=== PATIENT | female | born 1935 | race Caucasian/White ===

== ENCOUNTER 2021-06-04 17:58 | Inpatient (IN) ==
[2021-06-04] MEDS ORDERED: Naloxone 0.4 MG/ML INJ IVP PRN (23:53)
[2021-06-05] MEDS ORDERED: Melatonin 3 MG TABLET PO PRN
[2021-06-05] MEDS ORDERED: Naloxone 0.4 MG/ML INJ IVP ONE (00:42)
[2021-06-05 02:28] LABS: Basophils % 0.4 %; Hematocrit 40.5 % (35.3-44.9); Hemoglobin 12.5 g/dL (11.5-15.4); Immature Granulocytes % 0.4 % (0-4); Lymphocytes # 0.6 K/mcL (0.6-4.6); Lymphocytes % 11.9 %; Mean Corpuscular HGB Conc 30.9 g/dL (31.6-35.5); Mean Corpuscular Hemoglobin 27.7 pg (28.0-33.3); Mean Corpuscular Volume 89.6 fL (83.0-100.0); Mean Platelet Volume 10.9 fL (9.4-12.4); Monocytes # 0.2 K/mcL (0.0-1.3); Monocytes % 3.4 %; Platelet Count 242 K/mcL (140-400); Red Blood Count 4.52 M/mcL (3.82-4.97); Red Cell Distribution Width 14.4 % (11.5-14.5); Segmented Neutrophils % 83.9 %; White Blood Count 4.7 K/mcL (4.3-11.1)
[2021-06-05 02:47] LABS: Alanine Aminotransferase 11 Units/L (7-52); Albumin 3.7 g/dL (3.5-5.7); Albumin/Globulin Ratio 1.2 (1.1-2.2); Alkaline Phosphatase 79 Units/L (34-104); Aspartate Amino Transferase 17 Units/L (13-39); BUN/Creatinine Ratio 22 (6-26); Bilirubin,Total 0.8 mg/dL (0.3-1.0); Blood Urea Nitrogen 17 mg/dL (8-23); Calcium 8.4 mg/dL (8.6-10.3); Carbon Dioxide 24 mEq/L (23-29); Chloride 104 mEq/L (98-107); Globulin 3.1 g/dL (2.4-3.5); Glucose 127 mg/dL (70-105); Osmolality,Calculated 285 (280-300); Phosphorous 3.4 mg/dL (2.7-4.5); Sodium 136 mEq/L (136-145); Total Protein 6.8 g/dL (6.4-8.9); eGFR For African Americans > 60 (> 60); eGFR For Non-African Americans > 60 (> 60)
[2021-06-05] MEDS: Vancomycin 1,500 MG/265 ML IV.SOLN IVPB SCH (14:04)
[2021-06-05] MEDS ORDERED: Isovue-370 500 ML BOTTLE IVP ONE (16:30)
[2021-06-05] MEDS ORDERED: Isovue-370 500 ML BOTTLE PO ONE (17:09)
[2021-06-06 04:47] LABS: Basophils % 0.1 %; Hematocrit 38.7 % (35.3-44.9); Hemoglobin 12.2 g/dL (11.5-15.4); Immature Granulocytes % 0.5 % (0-4); Lymphocytes # 0.9 K/mcL (0.6-4.6); Lymphocytes % 11.4 %; Mean Corpuscular HGB Conc 31.5 g/dL (31.6-35.5); Mean Platelet Volume 10.8 fL (9.4-12.4); Monocytes # 0.5 K/mcL (0.0-1.3); Monocytes % 5.9 %; Platelet Count 303 K/mcL (140-400); Red Blood Count 4.35 M/mcL (3.82-4.97); Red Cell Distribution Width 14.1 % (11.5-14.5); Segmented Neutrophils % 82.1 %
[2021-06-06 04:51] LABS: Neutrophils # 6.7 K/mcL (1.6-8.9); White Blood Count 8.1 K/mcL (4.3-11.1)
[2021-06-06 05:06] LABS: BUN/Creatinine Ratio 33 (6-26); Blood Urea Nitrogen 27 mg/dL (8-23); Calcium 8.7 mg/dL (8.6-10.3); Carbon Dioxide 22 mEq/L (23-29); Chloride 107 mEq/L (98-107); Glucose 115 mg/dL (70-105); Osmolality,Calculated 286 (280-300); Potassium 3.8 mEq/L (3.5-5.1); Sodium 135 mEq/L (136-145); eGFR For African Americans > 60 (> 60); eGFR For Non-African Americans > 60 (> 60)
[2021-06-06] MEDS: *HR* Enoxaparin 40 MG/0.4 ML SYRINGE SQ SCH (05:49)
[2021-06-06] MEDS: Aspirin 81 MG TAB.CHEW PO SCH (08:24)
[2021-06-06] MEDS: Vancomycin 1,500 MG/265 ML IV.SOLN IVPB SCH (12:00)
[2021-06-06] MEDS ORDERED: hydrALAZINE 25 MG TABLET PO ONE (20:30)
[2021-06-07] MEDS: *HR* Enoxaparin 40 MG/0.4 ML SYRINGE SQ SCH (05:27)
[2021-06-07] MEDS: amLODIPine 5 MG TABLET PO SCH (05:27)
[2021-06-07 05:46] LABS: Basophils % 0.2 %; Eosinophils % 0.2 %; Hematocrit 37.4 % (35.3-44.9); Hemoglobin 11.6 g/dL (11.5-15.4); Immature Granulocytes % 0.6 % (0-4); Lymphocytes # 1.5 K/mcL (0.6-4.6); Lymphocytes % 14.5 %; Mean Corpuscular Hemoglobin 27.7 pg (28.0-33.3); Mean Corpuscular Volume 89.3 fL (83.0-100.0); Mean Platelet Volume 10.8 fL (9.4-12.4); Monocytes # 0.9 K/mcL (0.0-1.3); Monocytes % 8.3 %; Platelet Count 284 K/mcL (140-400); Red Blood Count 4.19 M/mcL (3.82-4.97); Red Cell Distribution Width 14.4 % (11.5-14.5); Segmented Neutrophils % 76.2 %; White Blood Count 10.5 K/mcL (4.3-11.1)
[2021-06-07 08:21] LABS: BUN/Creatinine Ratio 32 (6-26); Blood Urea Nitrogen 28 mg/dL (8-23); Calcium 8.3 mg/dL (8.6-10.3); Carbon Dioxide 25 mEq/L (23-29); Chloride 105 mEq/L (98-107); Glucose 90 mg/dL (70-105); Osmolality,Calculated 293 (280-300); Potassium 3.6 mEq/L (3.5-5.1); Sodium 139 mEq/L (136-145); eGFR For African Americans > 60 (> 60); eGFR For Non-African Americans > 60 (> 60)
[2021-06-07] MEDS: Aspirin 81 MG TAB.CHEW PO SCH (09:21)
[2021-06-07] MEDS ORDERED: clonazePAM 0.5 MG TABLET PO SCH (18:00)
[2021-06-08] MEDS: *HR* Enoxaparin 40 MG/0.4 ML SYRINGE SQ SCH (05:25)
[2021-06-08] MEDS: amLODIPine 5 MG TABLET PO SCH (05:25)
[2021-06-08] MEDS: Aspirin 81 MG TAB.CHEW PO SCH (08:05)
[2021-06-09] MEDS: amLODIPine 5 MG TABLET PO SCH (05:56)
[2021-06-09] MEDS: *HR* Enoxaparin 40 MG/0.4 ML SYRINGE SQ SCH (05:56)
[2021-06-09] MEDS: Aspirin 81 MG TAB.CHEW PO SCH (08:18)
[2021-06-09] MEDS: Sennosides/Docusate Sodium TABLET PO SCH ×3 (09:40→20:57)
[2021-06-10] MEDS: *HR* Enoxaparin 40 MG/0.4 ML SYRINGE SQ SCH (06:17)
[2021-06-10] MEDS: amLODIPine 5 MG TABLET PO SCH (06:17)
[2021-06-10] MEDS: Sennosides/Docusate Sodium TABLET PO SCH ×2 (07:46→20:28)
[2021-06-10] MEDS: Aspirin 81 MG TAB.CHEW PO SCH (07:47)
[2021-06-11] MEDS: *HR* Enoxaparin 40 MG/0.4 ML SYRINGE SQ SCH (05:50)
[2021-06-11] MEDS: amLODIPine 5 MG TABLET PO SCH (05:52)
[2021-06-11] MEDS: Sennosides/Docusate Sodium TABLET PO SCH ×2 (08:33→20:26)
[2021-06-11] MEDS: Aspirin 81 MG TAB.CHEW PO SCH (08:33)
[2021-06-12] MEDS: *HR* Enoxaparin 40 MG/0.4 ML SYRINGE SQ SCH (05:21)
[2021-06-12] MEDS: amLODIPine 5 MG TABLET PO SCH (05:21)
[2021-06-12] MEDS: Sennosides/Docusate Sodium TABLET PO SCH ×2 (08:41→08:54)
[2021-06-12] MEDS: Aspirin 81 MG TAB.CHEW PO SCH (08:41)
[2021-06-12 09:02] VITALS: BP 160/88; PULSE 73; TEMP 97.5; O2SAT 93
[2021-06-12 10:20] LABS: Basophils # 0.1 K/mcL (0.0-0.2); Basophils % 0.7 %; Eosinophils # 0.5 K/mcL (0.0-0.6); Eosinophils % 3.5 %; Hematocrit 36.6 % (35.3-44.9); Hemoglobin 11.1 g/dL (11.5-15.4); Immature Granulocytes % 0.9 % (0-4); Lymphocytes # 1.6 K/mcL (0.6-4.6); Lymphocytes % 12.2 %; Mean Corpuscular HGB Conc 30.3 g/dL (31.6-35.5); Mean Corpuscular Hemoglobin 27.5 pg (28.0-33.3); Mean Corpuscular Volume 90.8 fL (83.0-100.0); Mean Platelet Volume 10.7 fL (9.4-12.4); Monocytes # 1.2 K/mcL (0.0-1.3); Monocytes % 9.2 %; Neutrophils # 9.9 K/mcL (1.6-8.9); Platelet Count 314 K/mcL (140-400); Red Blood Count 4.03 M/mcL (3.82-4.97); Red Cell Distribution Width 14.5 % (11.5-14.5); Segmented Neutrophils % 73.5 %; White Blood Count 13.4 K/mcL (4.3-11.1)
[2021-06-12 10:40] LABS: BUN/Creatinine Ratio 17 (6-26); Blood Urea Nitrogen 15 mg/dL (8-23); Calcium 8.5 mg/dL (8.6-10.3); Carbon Dioxide 27 mEq/L (23-29); Chloride 103 mEq/L (98-107); Glucose 92 mg/dL (70-105); Osmolality,Calculated 280 (280-300); Potassium 3.5 mEq/L (3.5-5.1); Sodium 135 mEq/L (136-145); eGFR For African Americans > 60 (> 60); eGFR For Non-African Americans > 60 (> 60)
== END 2021-06-12 17:54 | DRG 177 ==
LOC: 3ANU → SUATTDRO 06-05 09:21
PROVIDERS: ADMIT Student in an Organized Health Care Education/Training Program; ATTEND Internal Medicine